=== PATIENT | female | born 2000 | race Two or more races ===

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

== ENCOUNTER 2022-04-03 23:53 | Emergency (ER) | payer MEDICAID, OTHER ==
[~2022-04-03] VITALS: Ht 160 cm; Wt 86.3 kg
[2022-04-03 23:53] VITALS: BP 149/109
== END 2022-04-04 11:24 | disposition left against medical advice (07) ==
LOC: ER 23:53
DX: R06.02 Shortness of breath (principal); R07.89 Other chest pain; Z53.21 Procedure and treatment not carried out due to patient leaving prior to being seen by health care provider